=== PATIENT | female | born 1985 | race Caucasian/White ===

== ENCOUNTER 2016-07-26 01:23 | Emergency (ER) | payer MEDICAID ==
[~2016-07-26] VITALS: Ht 160 cm; Wt 59.0 kg
[~2016-07-26 01:23] MED LIST: BACT800T5 PO; CEPH-460 PO; HYDR1ELX PO; IBUP800T23 PO
[2016-07-26 01:28] VITALS: BP 134/85; PULSE 119; RESP 18; TEMP 98.7; O2SAT 98
[2016-07-26] MEDS ORDERED: LORA-475 PO (01:44)
[2016-07-26] MEDS ORDERED: REME30TA PO (01:44)
--- NOTE | 2016-07-26 02:53 | PD ---
HPI Chief Complaint: Cardiac Complaint Time Seen by Provider: 02:00 Travel History International Travel<30 days: No Contact w/Intl Traveler<30days: No Traveled to known affect area: No History of Present Illness HPI 30-year-old female complains of palpitation. Patient has history of anxiety and is on Ativan 1 mg 3 times a day. Patient states that she ran out of Ativan. Last Ativan was earlier yesterday morning. Patient has history of opiates abuse also. Patient has been shooting up Dilaudid. Patient denies any headache. Patient denies any chest pain. Patient denies any shortness of breath. Patient denies abdominal pain. Patient denies any nausea vomiting. Patient denies any focal weakness or numbness of the extremity. Patient denies any cocaine or meth abuse. PFSH Past Medical History Arthritis: No Asthma: No Autoimmune Disease: No Bipolar Disorder: Yes Anxiety: Yes Depression: Yes Heart Rhythm Problems: No Cancer: No Cardiovascular Problems: No High Cholesterol: No Chemotherapy: No Chest Pain: No Congestive Heart Failure: No COPD: No Cerebrovascular Accident: No Diabetes: No Diminished Hearing: No Endocrine: No Gastrointestinal Disorders: No GERD: Yes Genitourinary: Yes Headaches: No Hepatitis: Yes (TYPE C) Hiatal Hernia: No Immune Disorder: No Implanted Vascular Access Dvce: No Kidney Stones: Yes (KIDNEY STONES 3 DIFFERENT OCCASIONS.) Musculoskeletal: Yes Neurologic: No Psychiatric: Yes (PTSD) Reproductive: No Respiratory: No Immunizations Current: Yes Migraines: No Renal Failure: No Seizures: Yes (X 1 RELATED TO BENZO WITHDRAWAL ) Shingles: Yes Sickle Cell Disease: No Sleep Apnea: No Thyroid Disease: No Ulcer: No Tetanus Vaccination: < 5 Years Influenza Vaccination: No ?: Not Menopausal: No : 3 Para: 2 Miscarriage: 0 : 1 Past Surgical History Abdominal Surgery: No AICD: No Arteriovenous Shunt: No Cardiac Surgery: No Ear Surgery: No Endocrine Surgery: No Eye Surgery: No Genitourinary Surgery: Yes (KIDNEY STONE REMOVAL) Gynecologic Surgery: No Insulin Pump: No Joint Replacement: No Oral Surgery: No Pacemaker: No Thoracic Surgery: No Other Surgery: Yes (LIVER BIOPSY) Social History Alcohol Use: Yes Tobacco Use: Yes (1 PPD) Substance Use: Yes (IV DILAUDID ) Allergies-Medications (Allergen,Severity, Reaction): Coded Allergies: No Known Allergies (Verified , 07/26/16) Reported Meds & Prescriptions Reported Meds & Active Scripts Active Reported Remeron (Mirtazapine) 30 Mg Tab 30 Mg PO HS Ativan (Lorazepam) 2 Mg Tab 2 Mg PO Q6H PRN Review of Systems General / Constitutional: No: Fever Eyes: No: Visual changes HENT: No: Headaches Cardiovascular: Positive: Tachycardia, No: Chest Pain or Discomfort Respiratory: No: Shortness of Breath Gastrointestinal: No: Abdominal Pain Genitourinary: No: Dysuria Musculoskeletal: No: Pain Skin: No Rash Neurologic: No: Weakness Psychiatric: No: Depression Endocrine: No: Polydipsia Hematologic/Lymphatic: No: Easy Bruising Physical Exam Narrative GENERAL: Well-nourished, well-developed patient. SKIN: Warm and dry. HEAD: Normocephalic. EYES: No scleral icterus. No injection or drainage. NECK: Supple, trachea midline. No JVD or lymphadenopathy. CARDIOVASCULAR: Mild tachycardia rate and rhythm without murmurs, gallops, or rubs. RESPIRATORY: Breath sounds equal bilaterally. No accessory muscle use. GASTROINTESTINAL: Abdomen soft, non-tender, nondistended. MUSCULOSKELETAL: No cyanosis, or edema. BACK: Nontender without obvious deformity. No CVA tenderness. Neurologic exam normal. Data Data Last Documented VS Vital Signs Date Time Temp Pulse Resp B/P Pulse Ox O2 Delivery O2 Flow Rate FiO2 07/26/16 01:28 98.7 119 18 134/85 98 Room Air MDM Medical Decision Making Medical Screen Exam Complete: Yes Emergency Medical Condition: Yes Interpretation(s) 2:52 AM. EKG shows sinus tachycardia rate 103. Nonspecific ST-T wave change. Differential Diagnosis Differential diagnosis including drug withdrawal, anxiety, substance abuse. Narrative Course 30-year-old female with mild tachycardia. History of opiate abuse and recently ran out of Ativan for anxiety. Diagnosis Primary Impression: Anxiety disorder Qualified Code: F41.9 - Anxiety disorder, unspecified type Additional Impression: Substance abuse Patient Instructions: General Instructions Additional Instructions: Advised [facility] for detox. Return if worse. Med/Other Pt SpecificInfo: No Change to Meds Disposition: 01 DISCHARGE HOME Condition: Stable Gibson Rodriguez MD Jul 26, 2016 02:53
== END 2016-07-26 03:01 | disposition home or self-care (01) ==
LOC: NEPE 01:23
DX: F41.9 Anxiety disorder, unspecified (principal); F17.210 Nicotine dependence, cigarettes, uncomplicated; F11.20 Opioid dependence, uncomplicated
CPT/HCPCS: 99283

== ENCOUNTER 2016-07-26 03:03 | Emergency (ER) | payer MEDICAID ==
[~2016-07-26] VITALS: Ht 160 cm; Wt 59.0 kg
[~2016-07-26 03:03] MED LIST changes: +LORA-475 PO; +REME30TA PO
[2016-07-26 03:04] VITALS: BP 117/78; PULSE 105; RESP 18; TEMP 98.7; O2SAT 97
[2016-07-26] MEDS ORDERED: SODIUM CHLORIDE 0.9% FLUSH 5 ML FLUSH IVF PRN (03:30)
[2016-07-26] MEDS ORDERED: IOHEXOL 350 MG/ML 10 ML VIAL (for RAD DIAG) IV ONE (03:54)
[2016-07-26 04:00] LABS: BASOPHIL % 0.5 % (0.0-2.0); EOSINOPHIL % 0.3 % (0.0-4.0); HEMATOCRIT 37.8 % (35.0-46.0); HEMO FLAGS DIFF FINAL; LYMPHOCYTE # 1.4 TH/MM3 (1.0-4.8); MEAN CELL VOLUME 89.9 FL (80.0-100.0); MEAN CORPUSCULAR HEMOGLOBIN 31.4 PG (27.0-34.0); MONO % 7.1 % (0.0-8.0); NEUT % 63.1 % (16.0-70.0); PLATELET COUNT 185 TH/MM3 (150-450); RED BLOOD COUNT 4.21 MIL/MM3 (4.00-5.30); RED CELL DISTRIBUTION WIDTH 15.1 % (11.6-17.2); WHITE BLOOD COUNT 4.7 TH/MM3 (4.0-11.0)
[2016-07-26 04:15] VITALS: O2SAT 99
--- NOTE | 2016-07-26 04:17 | RADRPT ---
EXAM DATE/TIME: 07/26/2016 03:38 [facility] COMPARISON: CT PULMONARY ANGIOGRAM, July 26, 2016, 3:53. INDICATIONS : Chest Pain MEDICAL HISTORY : None. SURGICAL HISTORY : None. ENCOUNTER: Initial ACUITY: 1 day PAIN SCORE: 4/10 LOCATION: Bilateral chest FINDINGS: A single view of the chest demonstrates the lungs to be symmetrically aerated without evidence of mas s, infiltrate or effusion. The cardiomediastinal contours are unremarkable. Osseous structures are intact. CONCLUSION: Normal examination. Lucas Arroyo MD on July 26, 2016 at 4:15 Board Certified Radiologist. This report was verified electronically.
--- NOTE | 2016-07-26 04:17 | RADRPT ---
EXAM DATE/TIME: 07/26/2016 03:53 [facility] COMPARISON: CHEST SINGLE AP, July 26, 2016, 3:38. INDICATIONS : Chest palpitations. IV CONTRAST: 72 cc Omnipaque 350 (iohexol) IV RADIATION DOSE: 22.14 CTDIvol (mGy) MEDICAL HISTORY : Hepatitis C. Gastroesophageal reflux disease. Renal calculi. SURGICAL HISTORY : None. ENCOUNTER: Initial ACUITY: 1 day PAIN SCALE: 2/10 LOCATION: chest TECHNIQUE: Volumetric scanning of the chest was performed using a pulmonary embolism protocol MIP images were re constructed. Using automated exposure control and adjustment of the mA and/or kV according to patien t size, radiation dose was kept as low as reasonably achievable to obtain optimal diagnostic quality images. FINDINGS: PULMONARY ARTERIES: No filling defects are seen in the pulmonary arteries through the segmental level. LUNGS: Left lower lobe pleural-based 4.4 mm nodule along the oblique fissure. PLEURAE: There is no pleural thickening or pleural effusion. MEDIASTINUM: There is good visualization of the great vessels of the middle mediastinum. No evidence of mediastin al or hilar adenopathy/mass. MUSCULOSKELETAL: Within normal limits for patient age. MISCELLANEOUS: The visualized upper abdominal organs demonstrate no acute abnormality. CONCLUSION: 1. No evidence for pulmonary embolism. Lucas Arroyo MD on July 26, 2016 at 4:14 Board Certified Radiologist. This report was verified electronically.
[2016-07-26 04:19] LABS: ALT (GPT) 17 U/L (10-53); ANION GAP 9 MEQ/L (5-15); AST (GOT) 10 U/L (15-37); BICARBONATE 23.6 MEQ/L (21.0-32.0); BLOOD UREA NITROGEN 7 MG/DL (7-18); CHLORIDE 106 MEQ/L (98-107); GLOMERULAR FILTRATION RATE 99 ML/MIN (>89); MAGNESIUM 2.1 MG/DL (1.5-2.5); POTASSIUM 3.7 MEQ/L (3.5-5.1); SODIUM (NA) 139 MEQ/L (136-145)
[2016-07-26 04:23] LABS: ALKALINE PHOSPHATASE 54 U/L (45-117); TOTAL BILIRUBIN ADULT 0.4 MG/DL (0.2-1.0)
[2016-07-26 04:25] LABS: CREATINE KINASE 78 U/L (26-192)
[2016-07-26 04:30] VITALS: BP 104/69; PULSE 94; RESP 16; O2SAT 97
--- NOTE | 2016-07-26 05:00 | PD ---
HPI Chief Complaint: Medical Clearance Time Seen by Provider: 03:16 Travel History International Travel<30 days: No Contact w/Intl Traveler<30days: No Traveled to known affect area: No History of Present Illness HPI The patient's 30 years old. She complains of palpitations for about 6 hours. She's had a cough with yellow phlegm. She denies chest pain specifically. She reports abusing Dilaudid intravenously within the last day. She explains that she has headache and eye pain which has evolved over the last 1-2 hours. She also states feels like she cannot move she is paralyzed and that when she cries her nose gets stuffy and it's hard for her to breathe. PFSH Past Medical History Arthritis: No Asthma: No Autoimmune Disease: No Bipolar Disorder: Yes Anxiety: Yes Depression: Yes Heart Rhythm Problems: No Cancer: No Cardiovascular Problems: No High Cholesterol: No Chemotherapy: No Chest Pain: No Congestive Heart Failure: No COPD: No Cerebrovascular Accident: No Diabetes: No Diminished Hearing: No Endocrine: No Gastrointestinal Disorders: No GERD: Yes Genitourinary: Yes Headaches: No Hepatitis: Yes (HEP C) Hiatal Hernia: No Immune Disorder: No Implanted Vascular Access Dvce: No Kidney Stones: Yes (KIDNEY STONES 3 DIFFERENT OCCASIONS.) Musculoskeletal: Yes Neurologic: No Psychiatric: Yes (PTSD) Reproductive: No Respiratory: No Immunizations Current: Yes Migraines: No Renal Failure: No Seizures: Yes (X 1 RELATED TO BENZO WITHDRAWAL ) Shingles: Yes Sickle Cell Disease: No Sleep Apnea: No Thyroid Disease: No Ulcer: No Tetanus Vaccination: Never Vaccinated Influenza Vaccination: No ?: Not Menopausal: No : 3 Para: 2 Miscarriage: 0 : 1 Past Surgical History Abdominal Surgery: No AICD: No Arteriovenous Shunt: No Cardiac Surgery: No Ear Surgery: No Endocrine Surgery: No Eye Surgery: No Genitourinary Surgery: Yes (KIDNEY STONE REMOVAL) Gynecologic Surgery: No Insulin Pump: No Joint Replacement: No Oral Surgery: No Pacemaker: No Thoracic Surgery: No Other Surgery: Yes (LIVER BIOPSY) Social History Alcohol Use: Yes Tobacco Use: Yes (1 PPD) Substance Use: Yes (IV DILAUDID ) Allergies-Medications (Allergen,Severity, Reaction): Coded Allergies: No Known Allergies (Verified , 07/26/16) Reported Meds & Prescriptions Reported Meds & Active Scripts Active Reported Remeron (Mirtazapine) 30 Mg Tab 30 Mg PO HS Ativan (Lorazepam) 2 Mg Tab 2 Mg PO Q6H PRN Review of Systems Except as stated in HPI: all other systems reviewed are Neg General / Constitutional: No: Fever Cardiovascular: Positive: Palpitations Respiratory: Positive: Shortness of Breath Physical Exam Narrative GENERAL: 30 -year-old female well-nourished well-developed distress SKIN: Warm and dry. Piloerection. Linear lesions consistent with IV drug abuse. HEAD: Atraumatic. Normocephalic. EYES: Pupils equal and round. No scleral icterus. No injection or drainage. ENT: No nasal bleeding or discharge. Mucous membranes pink and moist. NECK: Trachea midline. No JVD. CARDIOVASCULAR: Regular rhythm. Rate about 100-110. No murmur. RESPIRATORY: No accessory muscle use. Clear to auscultation. Breath sounds equal bilaterally. GASTROINTESTINAL: Abdomen soft, non-tender, nondistended. Hepatic and splenic margins not palpable. MUSCULOSKELETAL: No obvious deformities. No clubbing. No cyanosis. No edema. NEUROLOGICAL: Awake and alert. No obvious cranial nerve deficits. Motor grossly within normal limits. Normal speech. PSYCHIATRIC: Appropriate mood and affect; insight and judgment normal. Data Data Last Documented VS Vital Signs Date Time Temp Pulse Resp B/P Pulse Ox O2 Delivery O2 Flow Rate FiO2 07/26/16 04:30 94 16 104/69 97 Room Air 07/26/16 03:04 98.7 VS reviewed Orders Electrocardiogram (07/26/16 03:22) Ckmb (Isoenzyme) Profile (07/26/16 03:22) Complete Blood Count With Diff (07/26/16 03:22) Comprehensive Metabolic Panel (07/26/16 03:22) Magnesium (Mg) (07/26/16 03:22) Troponin I (07/26/16 03:22) Chest, Single Ap (07/26/16 03:22) Ecg Monitoring (07/26/16 03:22) Iv Access Insert/Monitor (07/26/16 03:22) Oximetry (07/26/16 03:22) Oxygen Administration (07/26/16 03:22) Sodium Chloride 0.9% Flush (Ns Flush) (07/26/16 03:30) Ct Pulmonary Angiogram (07/26/16 03:22) Blood Culture (07/26/16 03:22) Iohexol 350 Inj (Omnipaque 350 Inj) (07/26/16 03:54) Labs Laboratory Tests Test 07/26/16 03:35 White Blood Count 4.7 TH/MM3 Red Blood Count 4.21 MIL/MM3 Hemoglobin 13.2 GM/DL Hematocrit 37.8 % Mean Corpuscular Volume 89.9 FL Mean Corpuscular Hemoglobin 31.4 PG Mean Corpuscular Hemoglobin 35.0 % Concent Red Cell Distribution Width 15.1 % Platelet Count 185 TH/MM3 Mean Platelet Volume 8.8 FL Neutrophils (%) (Auto) 63.1 % Lymphocytes (%) (Auto) 29.0 % Monocytes (%) (Auto) 7.1 % Eosinophils (%) (Auto) 0.3 % Basophils (%) (Auto) 0.5 % Neutrophils # (Auto) 3.0 TH/MM3 Lymphocytes # (Auto) 1.4 TH/MM3 Monocytes # (Auto) 0.3 TH/MM3 Eosinophils # (Auto) 0.0 TH/MM3 Basophils # (Auto) 0.0 TH/MM3 CBC Comment DIFF FINAL Differential Comment Sodium Level 139 MEQ/L Potassium Level 3.7 MEQ/L Chloride Level 106 MEQ/L Carbon Dioxide Level 23.6 MEQ/L Anion Gap 9 MEQ/L Blood Urea Nitrogen 7 MG/DL Creatinine 0.69 MG/DL Estimat Glomerular Filtration 99 ML/MIN Rate Random Glucose 87 MG/DL Calcium Level 8.8 MG/DL Magnesium Level 2.1 MG/DL Total Bilirubin 0.4 MG/DL Aspartate Amino Transf 10 U/L (AST/SGOT) Alanine Aminotransferase 17 U/L (ALT/SGPT) Alkaline Phosphatase 54 U/L Total Creatine Kinase 78 U/L Troponin I LESS THAN 0.02 NG/ML Total Protein 7.9 GM/DL Albumin 3.9 GM/DL [facility] Medical Decision Making Medical Screen Exam Complete: Yes Emergency Medical Condition: Yes Medical Record Reviewed: Yes Differential Diagnosis NSTEMI, unstable angina, coronary vasospasm, PE, PTX, aortic dissection, pericarditis, myocarditis, endocarditis, PNA, esophageal disease, aneurysm, musculoskeletal etiologies, anxiety, cocaine/sympathomimetic abuse Narrative Course CBC & BMP Diagram 07/26/16 03:35 LFTs: normal Lipase: normal Tn < 0.02 EKG: sinus, rate 83, normal axis/intervals The patient is resting comfortably and feels better, is alert and in no distress. The patients results and examination findings were discussed. The repeat examination is unremarkable and benign. The history, exam, diagnostic testing, and current condition do not suggest any significant pathology to warrant further testing, continued ED treatment, admission, or surgical evaluation at this point. The vital signs have been stable. The patient does not have uncontrollable pain, intractable vomiting, or other significant symptoms. The patient's condition is stable and appropriate for discharge. The patient will pursue further outpatient evaluation with a primary care physician or other designated or consulting physician as indicated in the discharge instructions. The patient expressed understanding and was agreeable with this plan. Diagnosis Primary Impression: Palpitations Additional Impressions: Headache Qualified Code: R51 - Nonintractable headache, unspecified chronicity pattern , unspecified headache type Opioid withdrawal Referrals: [facility] 1 day Additional Instructions: You have a choice when it comes to health care, and we are glad that you chose [facility]. Hopefully, we have met your expectations on today's visit. You are welcome to return to [facility] at any time, as we are committed to meeting the health care needs of our community. Med/Other Pt SpecificInfo: No Change to Meds Disposition: 01 DISCHARGE HOME Condition: Stable Carson Aguilar MD Jul 26, 2016 05:00
[2016-07-26 05:29] VITALS: BP 111/70
[2016-07-26] MEDS ORDERED: IBUPROFEN 600 MG TAB PO ONE (05:30)
--- NOTE | 2016-07-26 09:13 | EKG ---
Date Performed: 07/26/2016 Time Performed: 05:04:25 PTAGE: 30 years EKG: Sinus rhythm WITH SINUS ARRHYTHMIA NORMAL ECG PREVIOUS TRACING : 07/26/2016 05.03 No significant change from previous tracing noted. DOCTOR: Kwan Castano Interpretating Date/Time 07/26/2016 09:12:11
--- NOTE | 2016-07-26 11:38 | EKG ---
Date Performed: 07/26/2016 Time Performed: 01:50:47 PTAGE: 30 years EKG: SINUS TACHYCARDIA ABNORMAL RHYTHM ECG PREVIOUS TRACING : 07/18/2015 22.48 Compared to previous tracing, heartr rate has increased. DOCTOR: Kwan Castano Interpretating Date/Time 07/26/2016 11:37:33
== END 2016-07-26 05:38 | disposition home or self-care (01) ==
LOC: NEPC 03:03
DX: R00.2 Palpitations (principal); R51 Headache; F11.23 Opioid dependence with withdrawal
CPT/HCPCS: 71010; 71275; 80053; 82550; 83735; 84484; 85025; 87040; 93005; 99285; Q9967

== ENCOUNTER 2017-10-20 17:14 | Emergency (ER) | payer MEDICAID, OTHER ==
[~2017-10-20 17:14] MED LIST changes: -BACT800T5 PO; -CEPH-460 PO; -HYDR1ELX PO; -IBUP800T23 PO
[2017-10-20 17:21] VITALS: BP 170/66; PULSE 80; RESP 20; TEMP 98.6; O2SAT 99
--- NOTE | 2017-10-20 17:30 | PD ---
HPI Chief Complaint: GI Complaint Time Seen by Provider: 17:29 Travel History International Travel<30 days: No Contact w/Intl Traveler<30days: No Traveled to known affect area: No History of Present Illness HPI 31-year-old female presents emergency department with worsening right upper quadrant tenderness, nausea, vomiting, with radiation to the left shoulder and chest. Patient states she was seen at [facility] last evening, and diagnosed with gallbladder gallstones, and is currently scheduled for gallbladder surgery on 01 November. Patient states he was given Bentyl and sent home. She said since last night her pain is worsened, she has had increased nausea and vomiting. She has been unable to eat anything today. She denies significant fever. Pain is currently 8 out of 10. She denies changes in her urine or bowels, although she states she was diagnosed with UTI and given amoxicillin last evening. She states she has been trying to take her antibiotics. Patient also states history of kidney stones in the past, but her pain feels different than that in the past. She has no known drug allergies. PFSH Past Medical History Arthritis: No Asthma: No Autoimmune Disease: No Bipolar Disorder: Yes Anxiety: Yes Depression: Yes Heart Rhythm Problems: No Cancer: No Cardiovascular Problems: No High Cholesterol: No Chemotherapy: No Chest Pain: No Congestive Heart Failure: No COPD: No Cerebrovascular Accident: No Diabetes: No Diminished Hearing: No Endocrine: No Gastrointestinal Disorders: No GERD: Yes Genitourinary: Yes Headaches: No Hepatitis: Yes (HEP C) Hiatal Hernia: No Immune Disorder: No Implanted Vascular Access Dvce: No Kidney Stones: Yes (KIDNEY STONES 3 DIFFERENT OCCASIONS.) Musculoskeletal: Yes Neurologic: No Psychiatric: Yes (PTSD) Reproductive: No Respiratory: No Immunizations Current: Yes Migraines: No Renal Failure: No Seizures: Yes (X 1 RELATED TO BENZO WITHDRAWAL ) Shingles: Yes Sickle Cell Disease: No Sleep Apnea: No Thyroid Disease: No Ulcer: No Menopausal: No : 3 Para: 2 Miscarriage: 0 : 1 Past Surgical History Abdominal Surgery: No AICD: No Arteriovenous Shunt: No Cardiac Surgery: No Ear Surgery: No Endocrine Surgery: No Eye Surgery: No Genitourinary Surgery: Yes (KIDNEY STONE REMOVAL) Gynecologic Surgery: No Insulin Pump: No Joint Replacement: No Oral Surgery: No Pacemaker: No Thoracic Surgery: No Other Surgery: Yes (LIVER BIOPSY) Social History Alcohol Use: Yes Tobacco Use: Yes (1 PPD) Substance Use: Yes (IV DILAUDID ) Allergies-Medications (Allergen,Severity, Reaction): Coded Allergies: No Known Allergies (Verified , 07/26/16) Reported Meds & Prescriptions Reported Meds & Active Scripts Active Reported Descovy (Emtricitabine-Tenofovir Alafenamide) 200-25 mg Tab 1 Tab PO DAILY Tivicay (Dolutegravir Sodium) 50 Mg Tab 50 Mg PO BID Gabapentin 100 Mg Cap 200 Mg PO BID Review of Systems Except as stated in HPI: all other systems reviewed are Neg General / Constitutional: No: Fever, Chills Eyes: No: Visual changes HENT: No: Headaches Cardiovascular: No: Chest Pain or Discomfort Respiratory: No: Shortness of Breath Gastrointestinal: Positive: Nausea, Vomiting, Abdominal Pain, Loss of Appetite , No: Hematemesis, Hematochezia, Constipation, Indigestion, Dysphagia Genitourinary: Positive: Decreased Urinary Output, No: Urgency, Frequency, Dysuria Musculoskeletal: No: Pain Skin: No Rash Neurologic: No: Weakness Psychiatric: No: Depression Endocrine: No: Polydipsia Hematologic/Lymphatic: No: Easy Bruising Physical Exam Narrative GENERAL: Patient appears in mild to moderate distress. SKIN: Warm and dry. Normal color. Normal turgor. HEAD: Atraumatic. Normocephalic. EYES: Pupils equal and round. No scleral icterus. No injection or drainage. ENT: No nasal bleeding or discharge. Mucous membranes pink and moist. Pharynx is clear. Airways patent. NECK: Trachea midline. Supple. CARDIOVASCULAR: Regular rate and rhythm. RESPIRATORY: No accessory muscle use. Clear to auscultation. Breath sounds equal bilaterally. GASTROINTESTINAL: Abdomen soft, moderate right upper quadrant tenderness with mild guarding and rebound noted, nondistended. No CVA tenderness. Hepatic and splenic margins not palpable. MUSCULOSKELETAL: Extremities without clubbing, cyanosis, or edema. No obvious deformities. NEUROLOGICAL: Awake and alert. No obvious cranial nerve deficits. Motor grossly within normal limits. Five out of 5 muscle strength in the arms and legs. Normal speech. PSYCHIATRIC: Appropriate mood and affect; insight and judgment normal. Data Data Last Documented VS Vital Signs Date Time Temp Pulse Resp B/P (MAP) Pulse Ox O2 Delivery O2 Flow Rate FiO2 10/20/17 17:21 98.6 80 20 170/66 (100) 99 Orders Orders Complete Blood Count With Diff (10/20/17 17:38) Comprehensive Metabolic Panel (10/20/17 17:38) Lipase (10/20/17 17:38) Lactic Acid (10/20/17 17:38) Prothrombin Time / Inr (Pt) (10/20/17 17:38) Act Partial Throm Time (Ptt) (10/20/17 17:38) Urinalysis - C+S If Indicated (10/20/17 17:38) Us Abdomen Gallbladder (10/20/17 ) Iv Access Insert/Monitor (10/20/17 17:38) Ecg Monitoring (10/20/17 17:38) Oximetry (10/20/17 17:38) Morphine Inj (Morphine Inj) (10/20/17 17:45) Sodium Chlor 0.9% 1000 Ml Inj (Ns 1000 M (10/20/17 17:38) Sodium Chloride 0.9% Flush (Ns Flush) (10/20/17 17:45) Dicyclomine Inj (Bentyl Inj) (10/20/17 17:45) Ed Urine Pregnancytest Poc (10/20/17 17:38) Ondansetron Odt (Zofran Odt) (10/20/17 17:45) Labs Laboratory Tests Test 10/20/17 17:58 10/20/17 18:15 White Blood Count 9.7 TH/MM3 Red Blood Count 4.18 MIL/MM3 Hemoglobin 13.0 GM/DL Hematocrit 39.0 % Mean Corpuscular Volume 93.3 FL Mean Corpuscular Hemoglobin 31.1 PG Mean Corpuscular Hemoglobin Concent 33.3 % Red Cell Distribution Width 14.5 % Platelet Count 301 TH/MM3 Mean Platelet Volume 8.9 FL Neutrophils (%) (Auto) 65.9 % Lymphocytes (%) (Auto) 24.4 % Monocytes (%) (Auto) 7.4 % Eosinophils (%) (Auto) 1.8 % Basophils (%) (Auto) 0.5 % Neutrophils # (Auto) 6.4 TH/MM3 Lymphocytes # (Auto) 2.4 TH/MM3 Monocytes # (Auto) 0.7 TH/MM3 Eosinophils # (Auto) 0.2 TH/MM3 Basophils # (Auto) 0.0 TH/MM3 CBC Comment DIFF FINAL Differential Comment Prothrombin Time 9.7 SEC Prothromb Time International Ratio 1.0 RATIO Activated Partial Thromboplast Time 25.1 SEC Total Protein 7.6 GM/DL Alkaline Phosphatase 65 U/L Alanine Aminotransferase (ALT/SGPT) 17 U/L Total Bilirubin 0.2 MG/DL Lactic Acid Level 0.9 mmol/L Urine Color YELLOW Urine Turbidity CLEAR Urine pH 6.5 Urine Specific [place] 1.018 Urine Protein NEG mg/dL Urine Glucose (UA) NEG mg/dL Urine Ketones NEG mg/dL Urine Occult Blood NEG Urine Nitrite NEG Urine Bilirubin NEG Urine Urobilinogen LESS THAN 2.0 MG/DL Urine Leukocyte Esterase NEG Urine WBC LESS THAN 1 /hpf Urine Squamous Epithelial Cells 1 /hpf Microscopic Urinalysis Comment CULT NOT INDICATED MDM Medical Decision Making Medical Screen Exam Complete: Yes Emergency Medical Condition: Yes Differential Diagnosis Right upper quadrant tenderness. Gallbladder disease. Renal colic. UTI. Pyelonephritis Narrative Course Patient is kept n.p.o. Labs ordered including CBC, CMP, lactic acid, urinalysis, coagulation studies. Ultrasound of the gallbladder is ordered. IV access is obtained and the patient is given 4 mg morphine IV, 4 mg Zofran ODT p.o., and 20 mg Bentyl IM. Patient is given 1000 mL of normal saline bolus. CBC is unremarkable. Coagulation studies show a PT of 9.7, INR is 1.0 Urinalysis is unremarkable. Lactic acid is 0.9. 1900 hrs., full chemistry panel is still pending, and ultrasound is pending as well. Care of the patient is turned over to Aubrey Nguyen PA-C for final disposition. Condition: Stable Shaji Mckeon October 20, 2017 17:30
[2017-10-20] MEDS ORDERED: SODIUM CHLOR 0.9% 1000 ML INJ 1,000 ML IV SCH (17:38)
[2017-10-20] MEDS ORDERED: SODIUM CHLORIDE 0.9% FLUSH 10 ML FLUSH IV FLUSH PRN (17:45)
[2017-10-20] MEDS ORDERED: MORPHINE SULFATE 4 MG/ML INJ IV PUSH ONE (17:45)
[2017-10-20] MEDS ORDERED: DICYCLOMINE HCL 20 MG/2 ML VIAL IM ONE (17:45)
[2017-10-20] MEDS ORDERED: ONDANSETRON ODT 4 MG TAB PO ONE (17:45)
[2017-10-20] MEDS ORDERED: EMTR1TAB4 PO (18:18)
[2017-10-20] MEDS ORDERED: DOLU1TAB PO (18:18)
[2017-10-20] MEDS ORDERED: GABA100C4 PO (18:18)
[2017-10-20 18:20] LABS: AUTOMATED NEUTROPHIL # 6.4 TH/MM3 (1.8-7.7); BASOPHIL % 0.5 % (0.0-2.0); EOSINOPHIL # 0.2 TH/MM3 (0-0.4); EOSINOPHIL % 1.8 % (0.0-4.0); LYMPH % 24.4 % (9.0-44.0); LYMPHOCYTE # 2.4 TH/MM3 (1.0-4.8); MEAN CELL VOLUME 93.3 FL (80.0-100.0); MEAN CORPUSCULAR HEMOGLOBIN 31.1 PG (27.0-34.0); MEAN CORPUSCULAR HGB CONC 33.3 % (32.0-36.0); MEAN PLATELET VOLUME 8.9 FL (7.0-11.0); MONO % 7.4 % (0.0-8.0); MONOCYTE # 0.7 TH/MM3 (0-0.9); NEUT % 65.9 % (16.0-70.0); PLATELET COUNT 301 TH/MM3 (150-450); RED BLOOD COUNT 4.18 MIL/MM3 (4.00-5.30); RED CELL DISTRIBUTION WIDTH 14.5 % (11.6-17.2); WHITE BLOOD COUNT 9.7 TH/MM3 (4.0-11.0)
[2017-10-20 18:29] LABS: PROTHROMBIN TIME - PATIENT 9.7 SEC (9.8-11.6)
[2017-10-20 18:44] LABS: ALT (GPT) 17 U/L (10-53)
[2017-10-20 18:45] LABS: BILIRUBIN, URINE NEG (NEG); BLOOD, URINE NEG (NEG); GLUCOSE,URINE NEG (NEG); KETONE, URINE NEG (NEG); NITRITE,URINE NEG (NEG); PH, URINE 6.5 (5.0-8.5); SQUAMOUS EPITHELIAL CELL URINE 1 /hpf (0-5); URINE COLOR YELLOW (YELLW/STRAW); URINE LEUKOCYTE ESTERASE NEG (NEG)
[2017-10-20 18:46] LABS: ALKALINE PHOSPHATASE 65 U/L (45-117); TOTAL BILIRUBIN ADULT 0.2 MG/DL (0.2-1.0); TOTAL PROTEIN 7.6 GM/DL (6.4-8.2)
[2017-10-20 18:49] LABS: ALBUMIN 3.6 GM/DL (3.4-5.0); AST (GOT) 22 U/L (15-37); BICARBONATE 24.1 MEQ/L (21.0-32.0); BLOOD UREA NITROGEN 13 MG/DL (7-18); CALCIUM 9.1 MG/DL (8.5-10.1); CHLORIDE 106 MEQ/L (98-107); GLOMERULAR FILTRATION RATE 97 ML/MIN (>89); GLUCOSE,RANDOM 91 MG/DL (74-106); SODIUM (NA) 137 MEQ/L (136-145)
--- NOTE | 2017-10-20 19:36 | RADRPT ---
EXAM DATE: 10/20/2017 7:15 PM EDT AGE/SEX: 31 years / Female INDICATIONS: Abdominal pain. CLINICAL DATA: This is the patient's subsequent encounter. Patient reports that signs and/or symptom s have been present for 2 days and indicates a pain score of 5/10. MEDICAL/SURGICAL HISTORY: . Kidney stones. Anxiety. HIV. . Liver biopsy. Kidney stone removal. COMPARISON: [facility] [place] - GALLBLAD[place], 01/24/2016. MEASUREMENTS (cm x cm x cm): Liver:__ 17.0 cm length Common Bile Duct:__ 6mm Right Kidney:__ 11.1 x 3.8 x 4.6 cm FINDINGS: Liver: Borderline enlarged with subtle diffusely decreased echogenicity. No focal mass or intrahepati c ductal dilatation. Portal Vein: Hepatopedal flow seen in portal vein. Common Duct: No intraluminal mass or stone visualized. Gallbladder: Redemonstration of numerous gallstones in the gallbladder which otherwise is decompress ed. No pericholecystic fluid or sonographic Carter sign. Gallbladder Wall: 3 mm Pancreas: The visualized portions are within normal limits. Right Kidney: No mass or hydronephrosis. Measures 11.1 x 3.8 x 4.6 cm CONCLUSION: 1. Cholelithiasis. 2. Sonographic findings suggestive of mild hepatic steatosis. Electronically signed by: Sander Ram MD 10/20/2017 7:34 PM EDT
--- NOTE | 2017-10-20 20:02 | PD ---
Physical Exam Date Seen by Provider: October 20, 2017 Time Seen by Provider: 19:54 Narrative GENERAL: This is a well-nourished, well-developed patient, in no apparent distress. SKIN: No rashes, ecchymoses or lesions. Warm and dry. HEAD: Atraumatic. Normocephalic. EYES: PERRL, EOMI, no discharge or injection. No scleral icterus. EARS: Clear NOSE: Nasal turbinates appear normal. THROAT: Mucosa pink and moist. Airway patent. NECK: Trachea midline. supple, moves head freely. LUNGS: Clear to auscultation. CV: Regular in rhythm. ABDOMEN: Soft nontender. No guarding or rebound. Normal active bowel sounds. EXT: No clubbing cyanosis or edema. Data Data Last Documented VS Vital Signs Date Time Temp Pulse Resp B/P (MAP) Pulse Ox O2 Delivery O2 Flow Rate FiO2 10/20/17 17:21 98.6 80 20 170/66 (100) 99 Orders Orders Complete Blood Count With Diff (10/20/17 17:38) Comprehensive Metabolic Panel (10/20/17 17:38) Lipase (10/20/17 17:38) Lactic Acid (10/20/17 17:38) Prothrombin Time / Inr (Pt) (10/20/17 17:38) Act Partial Throm Time (Ptt) (10/20/17 17:38) Urinalysis - C+S If Indicated (10/20/17 17:38) Us Abdomen Gallbladder (10/20/17 ) Iv Access Insert/Monitor (10/20/17 17:38) Ecg Monitoring (10/20/17 17:38) Oximetry (10/20/17 17:38) Morphine Inj (Morphine Inj) (10/20/17 17:45) Sodium Chlor 0.9% 1000 Ml Inj (Ns 1000 M (10/20/17 17:38) Sodium Chloride 0.9% Flush (Ns Flush) (10/20/17 17:45) Dicyclomine Inj (Bentyl Inj) (10/20/17 17:45) Ed Urine Pregnancytest Poc (10/20/17 17:38) Ondansetron Odt (Zofran Odt) (10/20/17 17:45) Ed Discharge Order (10/20/17 19:53) Labs Laboratory Tests Test 10/20/17 17:58 10/20/17 18:15 White Blood Count 9.7 TH/MM3 Red Blood Count 4.18 MIL/MM3 Hemoglobin 13.0 GM/DL Hematocrit 39.0 % Mean Corpuscular Volume 93.3 FL Mean Corpuscular Hemoglobin 31.1 PG Mean Corpuscular Hemoglobin Concent 33.3 % Red Cell Distribution Width 14.5 % Platelet Count 301 TH/MM3 Mean Platelet Volume 8.9 FL Neutrophils (%) (Auto) 65.9 % Lymphocytes (%) (Auto) 24.4 % Monocytes (%) (Auto) 7.4 % Eosinophils (%) (Auto) 1.8 % Basophils (%) (Auto) 0.5 % Neutrophils # (Auto) 6.4 TH/MM3 Lymphocytes # (Auto) 2.4 TH/MM3 Monocytes # (Auto) 0.7 TH/MM3 Eosinophils # (Auto) 0.2 TH/MM3 Basophils # (Auto) 0.0 TH/MM3 CBC Comment DIFF FINAL Differential Comment Prothrombin Time 9.7 SEC Prothromb Time International Ratio 1.0 RATIO Activated Partial Thromboplast Time 25.1 SEC Blood Urea Nitrogen 13 MG/DL Creatinine 0.70 MG/DL Random Glucose 91 MG/DL Total Protein 7.6 GM/DL Albumin 3.6 GM/DL Calcium Level 9.1 MG/DL Alkaline Phosphatase 65 U/L Aspartate Amino Transf (AST/SGOT) 22 U/L Alanine Aminotransferase (ALT/SGPT) 17 U/L Total Bilirubin 0.2 MG/DL Sodium Level 137 MEQ/L Potassium Level 4.8 MEQ/L Chloride Level 106 MEQ/L Carbon Dioxide Level 24.1 MEQ/L Anion Gap 7 MEQ/L Estimat Glomerular Filtration Rate 97 ML/MIN Lactic Acid Level 0.9 mmol/L Lipase 166 U/L Urine Color YELLOW Urine Turbidity CLEAR Urine pH 6.5 Urine Specific Center 1.018 Urine Protein NEG mg/dL Urine Glucose (UA) NEG mg/dL Urine Ketones NEG mg/dL Urine Occult Blood NEG Urine Nitrite NEG Urine Bilirubin NEG Urine Urobilinogen LESS THAN 2.0 MG/DL Urine Leukocyte Esterase NEG Urine WBC LESS THAN 1 /hpf Urine Squamous Epithelial Cells 1 /hpf Microscopic Urinalysis Comment CULT NOT INDICATED [facility] Medical Record Reviewed: Yes Supervised Visit with DAISY: No Interpretation(s) Laboratory Tests Test 10/20/17 17:58 10/20/17 18:15 White Blood Count 9.7 TH/MM3 Red Blood Count 4.18 MIL/MM3 Hemoglobin 13.0 GM/DL Hematocrit 39.0 % Mean Corpuscular Volume 93.3 FL Mean Corpuscular Hemoglobin 31.1 PG Mean Corpuscular Hemoglobin Concent 33.3 % Red Cell Distribution Width 14.5 % Platelet Count 301 TH/MM3 Mean Platelet Volume 8.9 FL Neutrophils (%) (Auto) 65.9 % Lymphocytes (%) (Auto) 24.4 % Monocytes (%) (Auto) 7.4 % Eosinophils (%) (Auto) 1.8 % Basophils (%) (Auto) 0.5 % Neutrophils # (Auto) 6.4 TH/MM3 Lymphocytes # (Auto) 2.4 TH/MM3 Monocytes # (Auto) 0.7 TH/MM3 Eosinophils # (Auto) 0.2 TH/MM3 Basophils # (Auto) 0.0 TH/MM3 CBC Comment DIFF FINAL Differential Comment Prothrombin Time 9.7 SEC Prothromb Time International Ratio 1.0 RATIO Activated Partial Thromboplast Time 25.1 SEC Blood Urea Nitrogen 13 MG/DL Creatinine 0.70 MG/DL Random Glucose 91 MG/DL Total Protein 7.6 GM/DL Albumin 3.6 GM/DL Calcium Level 9.1 MG/DL Alkaline Phosphatase 65 U/L Aspartate Amino Transf (AST/SGOT) 22 U/L Alanine Aminotransferase (ALT/SGPT) 17 U/L Total Bilirubin 0.2 MG/DL Sodium Level 137 MEQ/L Potassium Level 4.8 MEQ/L Chloride Level 106 MEQ/L Carbon Dioxide Level 24.1 MEQ/L Anion Gap 7 MEQ/L Estimat Glomerular Filtration Rate 97 ML/MIN Lactic Acid Level 0.9 mmol/L Lipase 166 U/L Urine Color YELLOW Urine Turbidity CLEAR Urine pH 6.5 Urine Specific Center 1.018 Urine Protein NEG mg/dL Urine Glucose (UA) NEG mg/dL Urine Ketones NEG mg/dL Urine Occult Blood NEG Urine Nitrite NEG Urine Bilirubin NEG Urine Urobilinogen LESS THAN 2.0 MG/DL Urine Leukocyte Esterase NEG Urine WBC LESS THAN 1 /hpf Urine Squamous Epithelial Cells 1 /hpf Microscopic Urinalysis Comment CULT NOT INDICATED Last 24 hours Impressions Gall Bladder Ultrasound 10/20/17 0000 Signed Impressions: CONCLUSION: 1. Cholelithiasis. 2. Sonographic findings suggestive of mild hepatic steatosis. Differential Diagnosis . Narrative Course This is a patient I was asked to follow-up in her laboratory testing and ultrasound. The patient is resting comfortable in examination room. Her exam is normal. Patient has an appointment on November 01 with a surgeon out of [facility] to have her gallbladder removed. She also has not contacted her doctor recently regarding her complaints of abdominal pain. The patient has not following any restrictive diet. Patient's ultrasound does not show any obstructive disease. Negative Carter sign. CBD is normal size. No obvious obstructing stones. No gallbladder wall thickening or pericolic fluid. The patient's exam does not reveal an obstructive process. The patient once again has been advised to follow a restrictive diet. I have discussed the need to avoid any greasy or fatty foods. I have instructed her to look up on the Internet for diet as well as following the recommendations of her discharge nurse. I have encouraged the patient to see her primary care doctor in the next 1-2 days as well as contact her surgeon to see if she can be placed on the surgery schedule earlier due to her complaints of recurrent pain. I see no indication for admission today. This is abdominal pain, cholelithiasis Diagnosis Primary Impression: Abdominal pain Additional Impression: Cholelithiasis Patient Instructions: Narcotic given in the ED, General Instructions Additional Instruction: Rest. Avoid any greasy or fatty foods completely in your diet. Do not cook with any butter or oils. Do not use cream in your coffee. Medications as directed. Contact your primary care doctor to follow-up in the next 1-2 days. Contact your surgeon to see if he can be placed on the surgery schedule as soon as possible. If you get recurrent pain call your surgeon immediately. Med/Other Pt SpecificInfo: Prescription(s) given Disposition: 01 DISCHARGE HOME Condition: Godfrey Mclaughlin October 20, 2017 20:02
[2017-10-20] MEDS ORDERED: ZOFR8TAB4 SL (20:04)
[2017-10-20] MEDS ORDERED: DICL75TA PO (20:04)
== END 2017-10-20 20:28 | disposition home or self-care (01) ==
LOC: NEPD 17:14
DX: K80.20 Calculus of gallbladder without cholecystitis without obstruction (principal); K21.9 Gastro-esophageal reflux disease without esophagitis; B19.20 Unspecified viral hepatitis C without hepatic coma; F11.90 Opioid use, unspecified, uncomplicated; F17.210 Nicotine dependence, cigarettes, uncomplicated; Z87.442 Personal history of urinary calculi
CPT/HCPCS: 76705; 80053; 81001; 83605; 83690; 84703; 85025; 85610; 85730; 96361; 96372; 96374; 99284; J0500; J2270; J7030

== ENCOUNTER 2017-11-04 03:24 | Emergency (ER) | payer OTHER ==
[~2017-11-04] VITALS: Ht 162.6 cm; Wt 80.0 kg
[~2017-11-04 03:24] MED LIST changes: +DICL75TA PO; +DOLU1TAB PO; +EMTR1TAB4 PO; +GABA100C4 PO; -LORA-475 PO; -REME30TA PO; +ZOFR8TAB4 SL
[2017-11-04 03:27] VITALS: BP 131/75; PULSE 78; RESP 18; TEMP 98.1; O2SAT 99
--- NOTE | 2017-11-04 04:22 | PD ---
HPI . Abdomen pain Chief Complaint: Abdominal Pain Time Seen by Provider: 04:11 Travel History International Travel<30 days: No Contact w/Intl Traveler<30days: No Traveled to known affect area: No History of Present Illness HPI Patient is a 31-year-old female who has had off-and-on pain in her right upper quadrant for the last few days. She said over the last month she has had pain off and on and she knows she has had gallstones gallstones were diagnosed a year ago and she is scheduled to have surgery in the next coming week however her surgeon she said her his hand. She is seems mildly intoxicated and she is complaining of pain however on my initial exam percussing her entire abdomen she has no focal tenderness. 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)) Hiatal Hernia: No Immune Disorder: No Implanted Vascular Access Dvce: No Kidney Stones: Yes (KIDNEY STONES 3 DIFFERENT OCCASIONS.) Musculoskeletal: Yes Neurologic: No Psychiatric: Yes (PTSD) Reproductive: No Respiratory: No Immunizations Current: Yes Migraines: No Renal Failure: No Seizures: Yes (X 1 RELATED TO BENZO WITHDRAWAL (3yrs ago)) Shingles: Yes Sickle Cell Disease: No Sleep Apnea: No Thyroid Disease: No Ulcer: No Tetanus Vaccination: < 5 Years Influenza Vaccination: No ?: Not LMP: 10/23/2017 Menopausal: No : 3 Para: 2 Miscarriage: 0 : 1 Past Surgical History Abdominal Surgery: No AICD: No Arteriovenous Shunt: No Cardiac Surgery: No Ear Surgery: No Endocrine Surgery: No Eye Surgery: No Genitourinary Surgery: Yes (KIDNEY STONE REMOVAL) Gynecologic Surgery: No Insulin Pump: No Joint Replacement: No Oral Surgery: No Pacemaker: No Thoracic Surgery: No Other Surgery: Yes (LIVER BIOPSY) Social History Alcohol Use: No Tobacco Use: Yes (1 PPD) Substance Use: Yes (coacaine tonight, HX IV drug use pt states no IV drugs for 2 yrs) Allergies-Medications (Allergen,Severity, Reaction): Coded Allergies: paliperidone (Verified Allergy, Severe, 11/04/17) increased heart rate, shortness of breath Reported Meds & Prescriptions Reported Meds & Active Scripts Active Lorcet (Hydrocodone-Acetaminophen) 5-325 mg Tab 1 Tab PO Q8HR PRN Reported Descovy (Emtricitabine-Tenofovir Alafenamide) 200-25 mg Tab 1 Tab PO DAILY Tivicay (Dolutegravir Sodium) 50 Mg Tab 50 Mg PO BID Review of Systems Except as stated in HPI: all other systems reviewed are Neg Gastrointestinal: Positive: Nausea, Diarrhea, Abdominal Pain Physical Exam Narrative GENERAL: Patient seems mild anxious SKIN: Warm and dry. HEAD: Atraumatic. Normocephalic. EYES: Pupils equal and round. No scleral icterus. No injection or drainage. ENT: No nasal bleeding or discharge. Mucous membranes pink and moist. NECK: Trachea midline. No JVD. CARDIOVASCULAR: Regular rate and rhythm. RESPIRATORY: No accessory muscle use. Clear to auscultation. Breath sounds equal bilaterally. GASTROINTESTINAL: Abdomen soft, with percussion in all quadrants she has non- tender reaction , nondistended. Hepatic and splenic margins not palpable. MUSCULOSKELETAL: Extremities without clubbing, cyanosis, or edema. No obvious deformities. NEUROLOGICAL: Awake and alert. No obvious cranial nerve deficits. Motor grossly within normal limits. Five out of 5 muscle strength in the arms and legs. Normal speech. PSYCHIATRIC: Appropriate mood and affect; insight and judgment normal. Data Data Last Documented VS Vital Signs Date Time Temp Pulse Resp B/P (MAP) Pulse Ox O2 Delivery O2 Flow Rate FiO2 11/04/17 11:34 (87) 11/04/17 10:32 71 11/04/17 08:37 14 99 Room Air 11/04/17 03:27 98.1 Orders Orders Ondansetron Odt (Zofran Odt) (11/04/17 04:30) Famotidine Inj (Pepcid Inj) (11/04/17 04:30) Ketorolac Inj (Toradol Inj) (11/04/17 05:00) Complete Blood Count With Diff (11/04/17 04:50) Comprehensive Metabolic Panel (11/04/17 04:50) Lipase (11/04/17 04:50) Morphine Inj (Morphine Inj) (11/04/17 06:30) Us Abdomen Gallbladder (11/04/17 ) Sodium Chlor 0.9% 1000 Ml Inj (Ns 1000 M (11/04/17 06:30) Electrocardiogram (11/04/17 07:53) Ckmb (Isoenzyme) Profile (11/04/17 07:53) Troponin I (11/04/17 07:53) [id number] 325-50-40 Mg (Fioricet 3 (11/04/17 10:00) Ed Discharge Order (11/04/17 11:03) Labs Laboratory Tests Test 11/04/17 05:10 White Blood Count 10.9 TH/MM3 Red Blood Count 4.21 MIL/MM3 Hemoglobin 13.1 GM/DL Hematocrit 38.4 % Mean Corpuscular Volume 91.2 FL Mean Corpuscular Hemoglobin 31.1 PG Mean Corpuscular Hemoglobin Concent 34.1 % Red Cell Distribution Width 14.2 % Platelet Count 305 TH/MM3 Mean Platelet Volume 9.2 FL Neutrophils (%) (Auto) 76.4 % Lymphocytes (%) (Auto) 17.5 % Monocytes (%) (Auto) 5.7 % Eosinophils (%) (Auto) 0.1 % Basophils (%) (Auto) 0.3 % Neutrophils # (Auto) 8.3 TH/MM3 Lymphocytes # (Auto) 1.9 TH/MM3 Monocytes # (Auto) 0.6 TH/MM3 Eosinophils # (Auto) 0.0 TH/MM3 Basophils # (Auto) 0.0 TH/MM3 CBC Comment DIFF FINAL Differential Comment Blood Urea Nitrogen 8 MG/DL Creatinine 0.70 MG/DL Random Glucose 92 MG/DL Total Protein 8.3 GM/DL Albumin 4.2 GM/DL Calcium Level 9.7 MG/DL Alkaline Phosphatase 58 U/L Aspartate Amino Transf (AST/SGOT) 11 U/L Alanine Aminotransferase (ALT/SGPT) 21 U/L Total Bilirubin 0.5 MG/DL Sodium Level 137 MEQ/L Potassium Level 3.5 MEQ/L Chloride Level 105 MEQ/L Carbon Dioxide Level 18.9 MEQ/L Anion Gap 13 MEQ/L Estimat Glomerular Filtration Rate 97 ML/MIN Total Creatine Kinase 79 U/L Troponin I LESS THAN 0.02 NG/ML Lipase 76 U/L [facility] Medical Decision Making Medical Screen Exam Complete: Yes Emergency Medical Condition: Yes Medical Record Reviewed: Yes Differential Diagnosis Differential diagnosis includes gallbladder disease versus GERD versus gastritis versus pancreatitis versus mesenteric adenitis versus rib pain versus back spasm with radiculopathy pain other Narrative Course Patient has a history of gallbladder disease and gallstones she was supposed to follow-up with a surgeon but has not she is now returning with a similar pain right upper quadrant pain ultrasound is ordered LFTs are within normal limits Pepcid IV and GI cocktail did not relieve her symptoms I give Toradol still she is having pain I give 2 of morphine and order an ultrasound to rule out cholecystitis. Patient signed out to the oncoming attending Diagnosis Primary Impression: Gallstones Scripts Hydrocodone-Acetaminophen (Lorcet) 5-325 mg Tab 1 TAB PO Q8HR Y for PAIN, #9 TAB 0 Refills Prov: Arya Hong MD 11/04/17 Yuan Tavera MD Nov 04, 2017 04:22
[2017-11-04] MEDS ORDERED: ONDANSETRON ODT 4 MG TAB PO ONE (04:30)
[2017-11-04] MEDS ORDERED: FAMOTIDINE 20 MG/2 ML VIAL IV PUSH SCH (04:30)
[2017-11-04 04:56] VITALS: BP 103/68; PULSE 84; RESP 16; O2SAT 97
[2017-11-04] MEDS ORDERED: KETOROLAC TROMETHAMINE 30 MG/ML (IVP) VIAL IV PUSH ONE (05:00)
[2017-11-04 05:22] LABS: AUTOMATED NEUTROPHIL # 8.3 TH/MM3 (1.8-7.7); BASOPHIL % 0.3 % (0.0-2.0); EOSINOPHIL % 0.1 % (0.0-4.0); HEMATOCRIT 38.4 % (35.0-46.0); HEMOGLOBIN 13.1 GM/DL (11.6-15.3); LYMPH % 17.5 % (9.0-44.0); LYMPHOCYTE # 1.9 TH/MM3 (1.0-4.8); MEAN CELL VOLUME 91.2 FL (80.0-100.0); MEAN CORPUSCULAR HEMOGLOBIN 31.1 PG (27.0-34.0); MEAN CORPUSCULAR HGB CONC 34.1 % (32.0-36.0); MEAN PLATELET VOLUME 9.2 FL (7.0-11.0); MONO % 5.7 % (0.0-8.0); MONOCYTE # 0.6 TH/MM3 (0-0.9); NEUT % 76.4 % (16.0-70.0); PLATELET COUNT 305 TH/MM3 (150-450); RED BLOOD COUNT 4.21 MIL/MM3 (4.00-5.30); RED CELL DISTRIBUTION WIDTH 14.2 % (11.6-17.2); WHITE BLOOD COUNT 10.9 TH/MM3 (4.0-11.0)
[2017-11-04 06:07] LABS: ALBUMIN 4.2 GM/DL (3.4-5.0); AST (GOT) 11 U/L (15-37); BICARBONATE 18.9 MEQ/L (21.0-32.0); BLOOD UREA NITROGEN 8 MG/DL (7-18); CALCIUM 9.7 MG/DL (8.5-10.1); CHLORIDE 105 MEQ/L (98-107); GLOMERULAR FILTRATION RATE 97 ML/MIN (>89); GLUCOSE,RANDOM 92 MG/DL (74-106); SODIUM (NA) 137 MEQ/L (136-145)
[2017-11-04 06:08] LABS: ALT (GPT) 21 U/L (10-53)
[2017-11-04 06:10] LABS: ALKALINE PHOSPHATASE 58 U/L (45-117); TOTAL BILIRUBIN ADULT 0.5 MG/DL (0.2-1.0); TOTAL PROTEIN 8.3 GM/DL (6.4-8.2)
[2017-11-04 06:22] VITALS: BP 116/72; PULSE 76; RESP 16; O2SAT 98
[2017-11-04] MEDS ORDERED: MORPHINE SULFATE 4 MG/ML INJ IV PUSH ONE (06:30)
[2017-11-04] MEDS ORDERED: SODIUM CHLOR 0.9% 1000 ML INJ 1,000 ML IV ONE (06:30)
--- NOTE | 2017-11-04 07:46 | RADRPT ---
EXAM DATE: 11/04/2017 7:42 AM EDT AGE/SEX: 31 years / Female INDICATIONS: Right upper quadrant pain. CLINICAL DATA: This is the patient's subsequent encounter. Patient reports that signs and/or symptom s have been present for 1 month and indicates a pain score of 8/10. MEDICAL/SURGICAL HISTORY: . Kidney stones. Anxiety. HIV. . Liver biopsy. Kidney stone removal. [place] [facility] [place]/20/2017. . No external comparison. MEASUREMENTS (cm x cm x cm): Liver:__ 16.5 cm length Common Bile Duct:__ 4mm FINDINGS: Liver: Echotexture is within normal limits. No focal liver lesion is identified. Portal Vein: Hepatopedal flow seen in portal vein. Common Duct: No intraluminal mass or stone visualized. Gallbladder: There are multiple mobile shadowing stones in the gallbladder. No wall thickening or pe richolecystic fluid is present. Sonographic Carter sign is negative. Pancreas: The visualized portions are within normal limits Right Kidney: No mass or hydronephrosis Other: None. CONCLUSION: 1. Cholelithiasis. However, there are no additional findings to indicate acute cholecystitis. 2. Remainder of the examination is within normal limits. Electronically signed by: Jaya Veras MD 11/04/2017 7:45 AM EDT
[2017-11-04 08:37] VITALS: BP 106/77; PULSE 64; RESP 14; O2SAT 99
[2017-11-04 08:59] LABS: TROPONIN I LESS THAN 0.02 NG/ML (0.02-0.05)
[2017-11-04] MEDS ORDERED: ACETAMIN 325 MG/BUTALBITAL 50 MG/CAFFEINE 40 MG TAB PO ONE (10:00)
[2017-11-04 10:32] VITALS: BP 121/70; PULSE 71
[2017-11-04] MEDS ORDERED: HYDR-3576 PO (10:57)
--- NOTE | 2017-11-04 11:02 | PD ---
Physical Exam Date Seen by Provider: Nov 04, 2017 Time Seen by Provider: 07:00 Narrative Patient signed out to me at change of shift by Dr. Tavera. Please see his H& P for further details. An ultrasound was ordered to rule out pericholecystic fluid. Patient has known history of gallstones. Data Data Last Documented VS Vital Signs Date Time Temp Pulse Resp B/P (MAP) Pulse Ox O2 Delivery O2 Flow Rate FiO2 11/04/17 10:32 71 121/70 (87) 11/04/17 08:37 14 99 Room Air 11/04/17 03:27 98.1 Orders Orders Ondansetron Odt (Zofran Odt) (11/04/17 04:30) Famotidine Inj (Pepcid Inj) (11/04/17 04:30) Ketorolac Inj (Toradol Inj) (11/04/17 05:00) Complete Blood Count With Diff (11/04/17 04:50) Comprehensive Metabolic Panel (11/04/17 04:50) Lipase (11/04/17 04:50) Morphine Inj (Morphine Inj) (11/04/17 06:30) Us Abdomen Gallbladder (11/04/17 ) Sodium Chlor 0.9% 1000 Ml Inj (Ns 1000 M (11/04/17 06:30) Electrocardiogram (11/04/17 07:53) Ckmb (Isoenzyme) Profile (11/04/17 07:53) Troponin I (11/04/17 07:53) Hfzu-[id number]-[id number] 325-50-40 Mg (Fioricet 3 (11/04/17 10:00) Labs Laboratory Tests Test 11/04/17 05:10 White Blood Count 10.9 TH/MM3 Red Blood Count 4.21 MIL/MM3 Hemoglobin 13.1 GM/DL Hematocrit 38.4 % Mean Corpuscular Volume 91.2 FL Mean Corpuscular Hemoglobin 31.1 PG Mean Corpuscular Hemoglobin Concent 34.1 % Red Cell Distribution Width 14.2 % Platelet Count 305 TH/MM3 Mean Platelet Volume 9.2 FL Neutrophils (%) (Auto) 76.4 % Lymphocytes (%) (Auto) 17.5 % Monocytes (%) (Auto) 5.7 % Eosinophils (%) (Auto) 0.1 % Basophils (%) (Auto) 0.3 % Neutrophils # (Auto) 8.3 TH/MM3 Lymphocytes # (Auto) 1.9 TH/MM3 Monocytes # (Auto) 0.6 TH/MM3 Eosinophils # (Auto) 0.0 TH/MM3 Basophils # (Auto) 0.0 TH/MM3 CBC Comment DIFF FINAL Differential Comment Blood Urea Nitrogen 8 MG/DL Creatinine 0.70 MG/DL Random Glucose 92 MG/DL Total Protein 8.3 GM/DL Albumin 4.2 GM/DL Calcium Level 9.7 MG/DL Alkaline Phosphatase 58 U/L Aspartate Amino Transf (AST/SGOT) 11 U/L Alanine Aminotransferase (ALT/SGPT) 21 U/L Total Bilirubin 0.5 MG/DL Sodium Level 137 MEQ/L Potassium Level 3.5 MEQ/L Chloride Level 105 MEQ/L Carbon Dioxide Level 18.9 MEQ/L Anion Gap 13 MEQ/L Estimat Glomerular Filtration Rate 97 ML/MIN Total Creatine Kinase 79 U/L Troponin I LESS THAN 0.02 NG/ML Lipase 76 U/L MDM Medical Record Reviewed: Yes Supervised Visit with DAISY: No Narrative Course 31-year-old female presents with right upper quadrant pain with radiation to her back. Patient has a history of gallstones. She is scheduled to have a cholecystectomy in the very near future. White count is normal. LFTs are within normal limits. EKG shows no evidence of acute ST elevation or depression. Cardiac enzymes are within normal limits. Patient be discharged with 10 tramadol's. She will be instructed to follow-up with her primary care doctor and her surgeon for her gallbladder disease. Diagnosis Primary Impression: Gallstones Additional Impression: Biliary colic Additional Instruction: Follow-up with your surgeon and primary care physician. Scripts Hydrocodone-Acetaminophen (Lorcet) 5-325 mg Tab 1 TAB PO Q8HR Y for PAIN, #9 TAB 0 Refills Prov: Arya Hong MD 11/04/17 Arya Hong MD Nov 04, 2017 11:02
--- NOTE | 2017-11-04 19:35 | EKG ---
Date Performed: 11/04/2017 Time Performed: 06:58:57 PTAGE: 31 years EKG: Sinus rhythm WITH FIRST DEGREE AV BLOCK PROLONGED QT INTERVAL ABNORMAL ECG INTERPRETATION BASED ON A DEFAULT AGE OF 40 YEARS Non-specific septal T-wave changes Since PREVIOUS TRACING ,The Non-specific septal T-wave changes have increased.QT prolongation i s new. PREVIOUS TRACIN07/26/2016 05.04 DOCTOR: Prerna Williamson Interpretating Date/Time 11/04/2017 19:35:00
== END 2017-11-04 11:36 | disposition home or self-care (01) ==
LOC: NEPE 03:24
DX: K80.80 Other cholelithiasis without obstruction (principal); K80.50 Calculus of bile duct without cholangitis or cholecystitis without obstruction; I44.0 Atrioventricular block, first degree; I45.81 Long QT syndrome; R94.31 Abnormal electrocardiogram [ECG] [EKG]; B20 Human immunodeficiency virus [HIV] disease; F31.9 Bipolar disorder, unspecified; K21.9 Gastro-esophageal reflux disease without esophagitis; F43.10 Post-traumatic stress disorder, unspecified
CPT/HCPCS: 76705; 80053; 82550; 83690; 84484; 85025; 93005; 96361; 96374; 96375; 99285; J1885; J2270; J7030